=== PATIENT | male | born 1930 | race Caucasian/White ===

== ENCOUNTER → 2017-03-06 19:03 | Outpatient (CLI) | payer MEDICARE ==
[2017-03-06 19:08] LABS: BASOPHILS 0.2 % (0-2); EOSINOPHILS 2.4 % (0-7); HEMATOCRIT 36.6 % (42.0-54.0); HEMOGLOBIN 11.9 g/dL (13.5-17.5); IMMATURE GRANULOCYTES 0.2 % (0-5); LYMPHOCYTES 13.6 % (15-50); MCH 32.4 pg (26.0-34.0); MCHC 32.5 g/dL (31.0-37.0); MCV 99.7 fL (80.0-100.0); MONOCYTES 11.4 % (2-11); NEUTROPHILS 72.2 % (40-80); PLATELET COUNT 190 10x3/uL (130-400); RBC 3.67 10x6/uL (4.20-6.10); RDW 14.7 % (11.5-14.5); WBC 4.6 10x3/uL (4.8-10.8)
== END | disposition home or self-care (01) ==
LOC: D.LABREF 19:03
PROVIDERS: Family Medicine
DX: I42.0 Dilated cardiomyopathy (principal); I48.0 Paroxysmal atrial fibrillation; I11.0 Hypertensive heart disease with heart failure

== ENCOUNTER → 2017-03-31 15:14 | Outpatient (CLI) | payer MEDICARE ==
[2017-04-01 00:18] LABS: INR 2.23 (0.85-1.17); PROTIME 24.1 SECONDS (11.6-15.0)
== END | disposition home or self-care (01) ==
LOC: D.LABREF 15:14
PROVIDERS: Family Medicine
DX: I42.0 Dilated cardiomyopathy (principal)